=== PATIENT | female | born 2000 | race Caucasian/White ===

== ENCOUNTER 2025-06-13 19:26 | Inpatient (IN) | payer OTHER, SELFPAY ==
[2025-06-13] VITALS (48 sets, daily range): BP systolic 94–122; BP diastolic 52–76; PULSE 66–107; TEMP 36.4–36.6; O2SAT 94–100
[2025-06-13] MEDS: LACTATED RINGERS 1,000 ML 999 ML IV CONT (21:45)
--- NOTE | 2025-06-13 22:16 | LDADM ---
This patient, Rosangela Washington, was admitted to Labor/Delivery/Recovery 106 on 06/13/25 at 19:26. Plans for labor, pain management and were discussed with patient. Patient/family oriented to hospital policies and general routines including ID bracelet, bed and alarms, visiting hours, pain management, procedures, bathroom and other care routines, personal items, smoking policy, room service/diet and guest tray routines, security routines, and visiting hours. Patient/Family are encouraged to report perceived risks to care and to ask questions if they do not understand what they are told or what they should do. See OBIX for further documentation.
[2025-06-13 22:20] LABS: Hematocrit 33.6 % (37.0-47.0); Hemoglobin 10.7 g/dL (12.0-15.0); Immature Granulocyte Percent A 1.2 % (0-0.5); Lymphocytes Absolute Auto 1.85 K/mm3 (0.9-3.2); Mean Corpuscular HGB Conc 31.8 g/dl (32-36); Mean Corpuscular Hemoglobin 25.5 pg (26-34); Mean Corpuscular Volume 80.2 fl (80-100); Nucleated Red Blood Cells Absolute Auto 0.000 K/mm3 (0.0-0.012); Nucleated Red Blood Cells Perc 0.0 % (0.0-0.2); Platelet Count Result 281 k/mm3 (150-375); Red Blood Count 4.19 M/mm3 (4.2-5.4); White Blood Count 12.1 K/mm3 (4.5-10.0)
--- NOTE | 2025-06-13 22:42 | WPDANESEPP ---
Anes - Eval Pre Procedure Procedure: Labor Epidural Date/Time: 06/13/25 22:42 Surgeon: Chery Preop Diagnosis: Labor Pain Pre Op Diagnosis: Labor Patient Data Age: 24 Gender: F Height: Weight: Last Vital Signs Temp 36.4 C 06/13/25 21:56 Pulse Ox 98 06/13/25 22:39 Allergies Allergy/AdvReac Type Severity Reaction Status Date / Time No Known Allergies Allergy Mild Verified 05/28/25 13:25 Home Medications ?Medication ?Instructions ?Recorded ?Confirmed ?Type vit no.95-ferrous 1 tablet PO DAILY 05/28/25 05/28/25 History fumarate 28 mg-folic acid 800 mcg tablet () valacyclovir 500 mg tablet 500 mg PO DAILY 05/28/25 05/28/25 History (Valtrex) Laboratory Tests 06/13/25 22:11 WBC 12.1 H K/mm3 (4.5-10.0) RBC 4.19 L M/mm3 (4.2-5.4) Hgb 10.7 L g/dL (12.0-15.0) Hct 33.6 L % (37.0-47.0) MCV 80.2 fl (80-100) MCH 25.5 L pg (26-34) MCHC 31.8 L g/dl (32-36) RDW 15.9 H % (11.5-14.5) Plt Count 281 k/mm3 (150-375) MPV 9.5 fl (7.4-10.4) Immature Gran % (Auto) 1.2 H % (0-0.5) Neut % (Auto) 76.4 H % (45.5-73.1) Lymph % (Auto) 15.3 L % (18.3-44.2) [place] % (Auto) 6.5 % (2.6-8.5) Eos % (Auto) 0.2 % (0-4.4) Baso % (Auto) 0.4 % (0.2-1.2) Lymph # (Auto) 1.85 K/mm3 (0.9-3.2) [place] # (Auto) 0.8 H K/mm3 (0.1-0.6) Eos # (Auto) 0.0 K/mm3 (0-0.3) Baso # (Auto) 0.1 K/mm3 (0.0-0.1) Abs Immat Gran (auto) 0.14 H K/mm3 (0.00-0.031) Absolute Neuts (auto) 9.2 H K/mm3 (1.3-6.7) Absolute Nucleated RBC 0.000 K/mm3 (0.0-0.012) Nucleated RBC % 0.0 % (0.0-0.2) : gestational age (, MADHAVI 06/09/25) Patient hx anesthesia problems: none Family hx anesthesia problems: none Results Review: All pre-operative results and documents have been reviewed as part of the pre-operative evaluation. [facility] Past Medical History Medical History HSV-2 infection Screen for STD (sexually transmitted disease) Family History Family History (Updated 05/28/25 @ 13:35 by Maria De Jesus Tolentino RN) Grandparent Pacemaker Social History Social History Smoking status: Never smoker Alcohol intake: current Alcohol use details: social Substance use: never Substance use type: marijuana Living arrangements: with family Occupation/Education: occupation Gender identity (if verbalized by the patient): Female Sexual Orientation (if Verbalized by the Patient): Bisexual Spiritual care concerns: No Exam Day of Procedure 06/13/25 22:42 Patient weight: normal Heart: regular rate and rhythm Lungs: normal air movement Airway: Mallampati scale class II Neurological: alert and oriented
[2025-06-13] MEDS: LACTATED RINGERS 1,000 ML 125 ML IV CONT (22:58)
[2025-06-13 23:06] LABS: Syphilis IgG/IgM Antibody Non-Reactive (Nonreactive)
[2025-06-14] VITALS (164 sets, daily range): BP systolic 75–123; BP diastolic 42–76; PULSE 34–121; RESP 14–16; TEMP 36.1–37.4; O2SAT 94–100; BMI 31.6
[2025-06-14] MEDS: ONDANSETRON INJ 4 MG/2 ML VIAL IV PUSH (00:28)
[2025-06-14] MEDS: LACTATED RINGERS 1,000 ML 125 ML IV CONT (01:11)
[2025-06-14] MEDS: OXYTOCIN 30 UNITS/NS 500 ML 30 UNITS/500 ML BAG IV CONT (05:06)
--- NOTE | 2025-06-14 06:00 | PM.IMHP ---
H&P: HPI History of Present Illness Date/Time: 06/14/25 06:00 Chief Complaint: Labor at term Narrative: 24-year-old 1 para 0 whose last menstrual period was 09/02/2024, EDC is 06/09/2025, presents at 40 and half weeks gestation in active labor. Her has been uncomplicated with normal diabetic screen and negative group B strep screen. She has a history of HSV 2 but a seen no lesions and has been taking Valtrex since 30/5 weeks. Review of Systems Review of Systems: All systems reviewed & are unremarkable except as noted in HPI and below PMFSH Past Medical History Medical History Screen for STD (sexually transmitted disease) HSV-2 infection Family History Family History Grandparent Pacemaker Social History Social History Years smoked: 3 Smoking status: Former smoker Tobacco type: cigarettes and e-cigarettes/vaping Alcohol intake: current Alcohol use details: social Substance use: never Substance use type: marijuana Lack of Transportation: No Lack of Food: Never True Current Housing: I Have Housing Concerned About Future Housing: No Difficulty Paying Gas/Electric Bills: No Difficulty Paying for Meds: No Currently Unemployed: No Education: High School Diploma/GED Difficulty w/ Childcare or Family Care: No Living arrangements: with family Occupation/Education: occupation Gender identity (if verbalized by the patient): Female Sexual Orientation (if Verbalized by the Patient): Bisexual Spiritual care concerns: No Meds Home Medications and Allergies Home Medications ?Medication ?Instructions ?Recorded ?Confirmed ?Type vit no.95-ferrous 1 tablet PO DAILY 05/28/25 06/13/25 History fumarate 28 mg-folic acid 800 mcg tablet () valacyclovir 500 mg tablet 500 mg PO DAILY 05/28/25 06/13/25 History (Valtrex) Allergies Allergy/AdvReac Type Severity Reaction Status Date / Time cat dander Allergy Mild Itching Verified 06/13/25 23:41 Vital Signs Vital Signs - 24 hr 06/13/25 21:36 06/13/25 21:37 06/13/25 21:41 Temperature 98 F Pulse Rate Blood Pressure Pulse Oximetry 97 98 06/13/25 21:46 06/13/25 21:47 06/13/25 21:54 Temperature Pulse Rate Blood Pressure Pulse Oximetry 99 98 96 06/13/25 21:56 06/13/25 21:59 06/13/25 22:04 Temperature 97.6 F Pulse Rate Blood Pressure Pulse Oximetry 99 99 06/13/25 22:09 06/13/25 22:14 06/13/25 22:19 Temperature Pulse Rate Blood Pressure Pulse Oximetry 99 98 98 06/13/25 22:24 06/13/25 22:29 06/13/25 22:34 Temperature Pulse Rate Blood Pressure Pulse Oximetry 99 99 99 06/13/25 22:39 06/13/25 22:42 06/13/25 22:44 Temperature Pulse Rate Blood Pressure Pulse Oximetry 98 99 100 06/13/25 22:46 06/13/25 22:48 06/13/25 22:49 Temperature Pulse Rate 89 79 Blood Pressure 110/66 113/63 Pulse Oximetry 99 06/13/25 22:50 06/13/25 22:52 06/13/25 22:54 Temperature Pulse Rate 78 78 Blood Pressure 122/66 95/61 L Pulse Oximetry 100 06/13/25 22:55 06/13/25 22:57 06/13/25 23:00 Temperature Pulse Rate 68 82 Blood Pressure 94/73 L 103/52 L 104/58 L Pulse Oximetry 100 06/13/25 23:02 06/13/25 23:05 06/13/25 23:07 Temperature Pulse Rate 81 76 70 Blood Pressure 98/56 L 103/55 L 101/62 Pulse Oximetry 98 98 06/13/25 23:10 06/13/25 23:12 06/13/25 23:15 Temperature Pulse Rate 86 81 88 Blood Pressure 103/59 L 101/58 L 100/57 L Pulse Oximetry 98 06/13/25 23:17 06/13/25 23:20 06/13/25 23:22 Temperature Pulse Rate 68 76 95 Blood Pressure 105/63 100/76 104/56 L Pulse Oximetry 98 97 06/13/25 23:25 06/13/25 23:27 06/13/25 23:30 Temperature Pulse Rate 90 74 84 Blood Pressure 107/59 L 105/58 L 104/60 Pulse Oximetry 97 06/13/25 23:32 06/13/25 23:37 06/13/25 23:42 Temperature Pulse Rate Blood Pressure Pulse Oximetry 96 97 96 06/13/25 23:43 06/13/25 23:44 06/13/25 23:45 Temperature Pulse Rate 80 Blood Pressure 113/66 Pulse Oximetry 94 94 100 06/13/25 23:50 06/13/25 23:51 06/13/25 23:56 Temperature Pulse Rate Blood Pressure Pulse Oximetry 99 98 96 06/14/25 00:01 06/14/25 00:06 06/14/25 00:11 Temperature Pulse Rate Blood Pressure Pulse Oximetry 96 96 97 06/14/25 00:14 06/14/25 00:19 06/14/25 00:22 Temperature Pulse Rate Blood Pressure Pulse Oximetry 96 97 96 06/14/25 00:27 06/14/25 00:30 06/14/25 00:31 Temperature Pulse Rate 101 H 81 Blood Pressure 117/53 L 113/68 Pulse Oximetry 100 06/14/25 00:32 06/14/25 00:37 06/14/25 00:44 Temperature Pulse Rate Blood Pressure Pulse Oximetry 96 96 98 06/14/25 00:45 06/14/25 00:49 06/14/25 00:54 Temperature Pulse Rate 70 Blood Pressure 110/64 Pulse Oximetry 97 98 06/14/25 00:57 06/14/25 00:59 06/14/25 01:00 Temperature 97 F L Pulse Rate 79 Blood Pressure 123/67 Pulse Oximetry 98 06/14/25 01:04 06/14/25 01:09 06/14/25 01:14 Temperature Pulse Rate Blood Pressure Pulse Oximetry 98 98 97 06/14/25 01:15 06/14/25 01:19 06/14/25 01:24 Temperature Pulse Rate 70 Blood Pressure 106/54 L Pulse Oximetry 98 97 06/14/25 01:29 06/14/25 01:30 06/14/25 01:34 Temperature Pulse Rate 72 Blood Pressure 103/56 L Pulse Oximetry 97 97 06/14/25 01:39 06/14/25 01:44 06/14/25 01:45 Temperature Pulse Rate 67 Blood Pressure 103/52 L Pulse Oximetry 97 97 06/14/25 01:49 06/14/25 01:54 06/14/25 01:59 Temperature Pulse Rate Blood Pressure Pulse Oximetry 97 97 97 06/14/25 02:00 06/14/25 02:04 06/14/25 02:09 Temperature Pulse Rate 72 Blood Pressure 97/53 L Pulse Oximetry 97 98 06/14/25 02:14 06/14/25 02:15 06/14/25 02:19 Temperature Pulse Rate 57 L Blood Pressure 84/47 L Pulse Oximetry 97 97 06/14/25 02:24 06/14/25 02:29 06/14/25 02:30 Temperature Pulse Rate 53 L Blood Pressure 75/43 L Pulse Oximetry 97 97 06/14/25 02:34 06/14/25 02:39 06/14/25 02:44 Temperature Pulse Rate Blood Pressure Pulse Oximetry 97 97 97 06/14/25 02:45 06/14/25 02:49 06/14/25 02:54 Temperature Pulse Rate 56 L Blood Pressure 87/46 L Pulse Oximetry 96 97 06/14/25 02:59 06/14/25 03:00 06/14/25 03:04 Temperature Pulse Rate 64 Blood Pressure 82/42 L Pulse Oximetry 97 96 06/14/25 03:09 06/14/25 03:14 06/14/25 03:19 Temperature 97.1 F L Pulse Rate 92 Blood Pressure 99/63 L Pulse Oximetry 98 100 99 06/14/25 03:24 06/14/25 03:29 06/14/25 03:30 Temperature Pulse Rate 82 Blood Pressure 100/63 Pulse Oximetry 98 99 06/14/25 03:34 06/14/25 03:39 06/14/25 03:44 Temperature Pulse Rate Blood Pressure Pulse Oximetry 98 98 98 06/14/25 03:45 06/14/25 03:49 06/14/25 03:54 Temperature Pulse Rate 59 L Blood Pressure 100/67 Pulse Oximetry 98 98 06/14/25 03:59 06/14/25 04:00 06/14/25 04:04 Temperature Pulse Rate 70 Blood Pressure 92/56 L Pulse Oximetry 98 98 06/14/25 04:09 06/14/25 04:14 06/14/25 04:15 Temperature Pulse Rate 60 Blood Pressure 104/62 Pulse Oximetry 98 98 06/14/25 04:19 06/14/25 04:24 06/14/25 04:29 Temperature Pulse Rate Blood Pressure Pulse Oximetry 98 98 98 06/14/25 04:30 06/14/25 04:34 06/14/25 04:39 Temperature Pulse Rate 75 Blood Pressure 101/56 L Pulse Oximetry 98 98 06/14/25 04:44 06/14/25 04:45 06/14/25 04:49 Temperature Pulse Rate 75 Blood Pressure 110/59 L Pulse Oximetry 98 97 06/14/25 04:54 06/14/25 04:59 06/14/25 05:00 Temperature Pulse Rate 60 Blood Pressure 106/63 Pulse Oximetry 98 98 06/14/25 05:04 06/14/25 05:09 06/14/25 05:14 Temperature Pulse Rate Blood Pressure Pulse Oximetry 98 99 100 06/14/25 05:15 06/14/25 05:19 06/14/25 05:24 Temperature 97.2 F L Pulse Rate Blood Pressure Pulse Oximetry 99 98 06/14/25 05:29 06/14/25 05:30 06/14/25 05:34 Temperature Pulse Rate 57 L Blood Pressure 103/54 L Pulse Oximetry 100 99 06/14/25 05:39 06/14/25 05:44 06/14/25 05:45 Temperature Pulse Rate 81 Blood Pressure 105/72 Pulse Oximetry 99 100 06/14/25 05:49 06/14/25 05:54 06/14/25 05:59 Temperature Pulse Rate Blood Pressure Pulse Oximetry 99 100 100 Exam Const: General: cooperative, healthy appearing and comfortable Nutritional Appearance: average body habitus Orientation/consciousness: oriented to person, oriented to place and oriented to time HENMT: Head: normal to inspection Resp: Effort & Inspection: normal respiratory effort Cardio: Rate: regular rate Rhythm: regular rhythm Heart sounds: S1 normal heart sound present and S2 normal heart sound present GI: Inspection: normal to inspection (Gravid soft uterus) : External Female Exam: normal external appearance Speculum Exam - Vagina: normal appearance of the vagina Speculum Exam - Cervix: normal appearance of the cervix (Cervix room-1 station. Clear fluid seen. FHTs reassuring) H&P: Results Labs Labs: Short CBC 06/13/25 Range/Units 22:11 WBC 12.1 H (4.5-10.0) K/mm3 Hgb 10.7 L (12.0-15.0) g/dL Hct 33.6 L (37.0-47.0) % Plt Count 281 (150-375) k/mm3 Assessment and Plan Assessment and plan (1) Term : Code(s): Z34.90 - Encounter for supervision of normal , unspecified, unspecified trimester Status: Acute Plan Spontaneous vaginal delivery is expected. Epidural is in and working
[2025-06-14] MEDS: OXYTOCIN 30 UNITS/NS 500 ML 30 UNITS/500 ML BAG 999 UNITS IV CONT (08:06)
--- NOTE | 2025-06-14 08:12 | PM.OBPRVD ---
OB - Vaginal Delivery Note Procedure Delivery date: 06/14/25 Induction method: None Delivery augmentation: Pitocin Delivery monitor: External FHT and External Uterine Route of delivery: Episiotomy description: None Laceration Description: None Specimen: No Anesthesia type: Epidural Disposition: Floor Narrative: Who was admitted at term in active labor artificial rupture membranes performed in the a.m. Jennifer progressive a rapid 1st stage of labor previously had epidural anesthesia placed this is a nurse delivery and was without difficulty placenta delivered intact spontaneously. Twenty of Pitocin placed IV to help firm the uterus no tears or lacerations were QBL was 62cc all sponge, needle, instrument counts were correct. There were no immediate complications Baby Date of : 06/14/25 Time of : 07:58 Gestational Age by Date: 40 gender: Female presentation: vertex position: Right Occiput Anterior Placenta delivery description: Spontaneous Cord Vessel Description: 3 Vessels score one minute: 8 score five minutes: 9
--- NOTE | 2025-06-14 08:14 | P.DS_ITS ---
DS: Admitting Diagnosis Discharge Date 06/15/2025 Admitting Diagnosis Term DS: Discharge Diagnosis Discharge Diagnosis (1) Term : Code(s): Z34.90 - Encounter for supervision of normal , unspecified, unspecified trimester Status: Acute DS: Summary Hospital Course Reason for hospitalization: Patient was admitted on the 06/13/2025 and underwent spontaneous vaginal delivery 06/14/2020 Hospital Course: Patient's hospital course unremarkable. She remained afebrile. She was up, voiding without difficulty, eating regular diet, ambulating, and generally without complaints. Time Spent with Patient Time attestation: Total time spent providing and/or coordinating discharge services: Exam Const: General: cooperative, healthy appearing and comfortable Nutritional Appearance: average body habitus Orientation/consciousness: oriented to person, oriented to place and oriented to time HENMT: Head: normal to inspection Resp: Effort & Inspection: normal respiratory effort Cardio: Rate: regular rate Rhythm: regular rhythm Heart sounds: S1 normal heart sound present and S2 normal heart sound present GI: Inspection: normal to inspection (Gravid soft uterus) : External Female Exam: normal external appearance Speculum Exam - Vagina: normal appearance of the vagina Speculum Exam - Cervix: normal appearance of the cervix (Cervix room-1 station. Clear fluid seen. FHTs reassuring) DS: Data Data Completed and Pending Labs on day of discharge: Labs from last 24 hours 06/13/25 22:11 WBC 12.1 H RBC 4.19 L Hgb 10.7 L Hct 33.6 L MCV 80.2 MCH 25.5 L MCHC 31.8 L RDW 15.9 H Plt Count 281 MPV 9.5 Immature Gran % (Auto) 1.2 H Neut % (Auto) 76.4 H Lymph % (Auto) 15.3 L [place] % (Auto) 6.5 Eos % (Auto) 0.2 Baso % (Auto) 0.4 Lymph # (Auto) 1.85 [place] # (Auto) 0.8 H Eos # (Auto) 0.0 Baso # (Auto) 0.1 Abs Immat Gran (auto) 0.14 H Absolute Neuts (auto) 9.2 H Absolute Nucleated RBC 0.000 Nucleated RBC % 0.0 Syphilis IgG/IgM Ab Non-reactive Discharge Plan Discharge Attending physician on discharge: Jae Paulson Discharging Clinician: Jae Paulson Patient Disposition: Home Activity: may shower, no straining and pelvic rest Diet: heart healthy Wound Care Instructions: follow printed instructions Patient Instructions: Antibiotic Form Patient Language: Egyptian Stand Alone Forms: General Discharge Information Follow-up/Referrals: Jae Paulson MD [Physician, COMPUTER SYSTEMS ENGINEER] Discharge Medications: Continued PNV no.95-ferrous fumarate-FA [] 28 mg iron- 800 mcg tablet 1 tablet PO DAILY valacyclovir [Valtrex] 500 mg tablet 500 mg PO DAILY Date of admission: 06/13/25 19:26 Primary Care Provider: UNKNOWN,DOCTOR Admitting Provider: Jae Paulson Attending physician on admission: Jae Paulson Condition: Stable
[2025-06-14] MEDS: OXYTOCIN 30 UNITS/NS 500 ML 30 UNITS/500 ML BAG 125 UNITS IV CONT (08:39)
--- NOTE | 2025-06-14 11:10 | OBPPTRN ---
Patient transferred to post room #278 via wheelchair. Support person- spouse Romero present. Oriented to unit, room, information board, rooming in, admission packet and security measures. Patient verbalizes understanding.
--- NOTE | 2025-06-14 11:31 | PC.NURSE ---
Dr. Iwona Bennett notified patient has normal bleeding, firm fundus, and total amount of Pitocin received (see MAR). Notified that IV will no longer flush and patient refuses new IV. OK per MD to remove IV and discontinue Pitocin at this time.
[2025-06-14] MEDS: IBUPROFEN 600 MG TABLET PO ×2 (11:45→18:30)
[2025-06-14] MEDS: ACETAMINOPHEN 325 MG TABLET 650 MG PO ×2 (11:45→18:31)
[2025-06-14] MEDS: MULTIVIT/MIN/PREN/FOL AC/IRON TABLET 1 TAB PO (11:45)
--- NOTE | 2025-06-14 16:04 | PC.NURSE ---
Introductions were made and communication board updated. Mother states that will latch on the breast but does not maintain latch. Upon entering room, mother had swaddled in the cradle position attempting to latch infant. This RN unswaddled infant and demonstrated positioning infant belly to belly and nose to nipple. Mother is able to independently hand express drops of colostrum in infants mouth. This RN assisted mother with latching on the left breast in football position. was able to maintain latch and swallows were noted. Mother needs minimal assistance with positioning for feedings. Primary RN updated.
[2025-06-15] MEDS: ACETAMINOPHEN 325 MG TABLET 650 MG PO ×2 (03:51→11:05)
[2025-06-15] MEDS: IBUPROFEN 600 MG TABLET PO ×3 (03:52→18:50)
[2025-06-15 05:21] LABS: Hematocrit 30.4 % (37.0-47.0); Hemoglobin 9.5 g/dL (12.0-15.0)
--- NOTE | 2025-06-15 06:49 | P.PNOB_ITS ---
OB - PN: Subj Subjective Date/time seen: 06/15/25 06:49 Patient comments: no complaints and tolerating diet feeding status: exclusively breast feeding OB - PN: Obj Data Labs 06/15/25 05:10 Labs: Laboratory Results - last 24 hr 06/15/25 05:10 Hgb 9.5 L Hct 30.4 L OB - PN A/P Assessment and Plan (1) Term : Code(s): Z34.90 - Encounter for supervision of normal , unspecified, unspecified trimester Status: Acute Plan home. f/u 4-5 weeks Time Spent With Patient Time: Total time spent is greater than 50% in coordination of care (as documented) at patient's floor/unit and/or counseling patient: Review of Systems 2 Review of Systems: All systems reviewed & are unremarkable except as noted in HPI and below Exam 2 Const: General: cooperative, healthy appearing and comfortable Nutritional Appearance: average body habitus Orientation/consciousness: oriented to person, oriented to place and oriented to time HENMT: Head: normal to inspection Resp: Effort & Inspection: normal respiratory effort Cardio: Rate: regular rate Rhythm: regular rhythm Heart sounds: S1 normal heart sound present and S2 normal heart sound present GI: Inspection: normal to inspection (Gravid soft uterus) : External Female Exam: normal external appearance Speculum Exam - Vagina: normal appearance of the vagina Speculum Exam - Cervix: normal appearance of the cervix (Cervix room-1 station. Clear fluid seen. FHTs reassuring)
[2025-06-15 08:57] VITALS: BP 98/54; PULSE 85; O2SAT 95
[2025-06-15] MEDS: MULTIVIT/MIN/PREN/FOL AC/IRON TABLET 1 TAB PO (08:58)
[2025-06-15] MEDS: DOCUSATE SODIUM 100 MG CAPSULE PO ×2 (08:58→17:37)
[2025-06-15 09:27] VITALS: RESP 16; TEMP 36.8
[2025-06-15 18:50] VITALS: BP 106/74; PULSE 101; RESP 16; TEMP 37.2; O2SAT 100
[2025-06-16] MEDS: IBUPROFEN 600 MG TABLET PO (05:50)
--- NOTE | 2025-06-16 06:24 | P.PNOB_ITS ---
OB - PN: Subj Subjective Date/time seen: 06/16/25 06:24 Patient comments: no complaints, pain well controlled and tolerating diet [place] baby status: doing well OB - PN: Obj Data Labs 06/15/25 05:10 Labs: Laboratory Results - last 24 hr 06/13/25 22:11 Blood Type A Positive Antibody Screen Negative OB - PN A/P Assessment and Plan (1) Term : Code(s): Z34.90 - Encounter for supervision of normal , unspecified, unspecified trimester Status: Acute Plan home Time Spent With Patient Time: Total time spent is greater than 50% in coordination of care (as documented) at patient's floor/unit and/or counseling patient: Review of Systems 2 Review of Systems: All systems reviewed & are unremarkable except as noted in HPI and below Exam 2 Const: General: cooperative, healthy appearing and comfortable Nutritional Appearance: average body habitus Orientation/consciousness: oriented to person, oriented to place and oriented to time HENMT: Head: normal to inspection Resp: Effort & Inspection: normal respiratory effort Cardio: Rate: regular rate Rhythm: regular rhythm Heart sounds: S1 normal heart sound present and S2 normal heart sound present GI: Inspection: normal to inspection (Gravid soft uterus) : External Female Exam: normal external appearance Speculum Exam - Vagina: normal appearance of the vagina Speculum Exam - Cervix: normal appearance of the cervix (Cervix room-1 station. Clear fluid seen. FHTs reassuring)
[2025-06-16] MEDS: MULTIVIT/MIN/PREN/FOL AC/IRON TABLET 1 TAB PO (08:06)
[2025-06-16] MEDS: DOCUSATE SODIUM 100 MG CAPSULE PO (08:07)
--- NOTE | 2025-06-16 08:50 | PC.NURSE ---
Observed mother with latched with the nipple shield to the right breast in cradle hold. She had been struggling to latch baby independently and the RN last night provided the nipple shield for her. She is confident in her ability to independently latch infant with the shield. Reviewed shield use, risk of decreased milk supply/transfer, and recommendation to pump after each to establish a robust supply. Mother is feeding appropriately for growth of infant and understands stimulating to eat if needed. has had appropriate feedings in the last 24 hours meets the outcomes for weight, output, blood sugar and jaundice at this time. Reinforced understanding of milk production, transition of milk, signs of adequate intake, transition of stool, prevention/relief of engorgement, plugged ducts, mastitis, responsive watching for feeding cues, community resources, and when to call a provider using the resource of the feeding sheet along with the mom and baby guide. She has a breast pump at home. Mother voiced understanding of the information shared, is confident to continue effectively her at home, when to call for assistance, denies any additional assistance or education at this time. Reported to the Primary RN.
--- NOTE | 2025-06-16 08:50 | PC.NURSE ---
Patient instructed on viewing the discharge video Mother & Baby Care, The First Two Weeks. Patient was given the opportunity and encouraged to ask questions. Patient verbalized understanding of information shared and has been given the mother/baby guide for home reference.
[2025-06-16 09:00] VITALS: BP 110/76; PULSE 79; RESP 16; TEMP 36.6; O2SAT 99
[2025-06-16 09:14] VITALS: BP 110/76; PULSE 84; PULSE 85; O2SAT 99
[2025-06-17 13:47] VITALS: BP 113/59; PULSE 100; RESP 18; TEMP 36.9; O2SAT 100
== END 2025-06-16 12:45 | disposition home or self-care (01) | DRG 807 ==
LOC: ANHLDR 06-14 08:15 → ANHOB2 06-14 11:19 → ANHOBPP 06-14 19:33
PROVIDERS: Admitting Provider Obstetrics & Gynecology; Visit Provider Obstetrics & Gynecology
DX: O98.32 Other infections with a predominantly sexual mode of transmission complicating childbirth (principal); Z37.0 Single live birth; Z3A.40 40 weeks gestation of pregnancy; A60.09 Herpesviral infection of other urogenital tract
CPT/HCPCS: 36415; 85014; 85018; 85025; 86593; 86850; 86900; 86901; A9270; J2405; J2590; J2795; J7120